=== PATIENT | female | born 1940 | race Caucasian/White ===

== ENCOUNTER 2018-05-02 13:14 | Emergency (ER) | payer MEDICARE, OTHER ==
[~2018-05-02] VITALS: Ht 162.6 cm; Wt 60.9 kg
[2018-05-02 13:16] VITALS: BP 176/87
[2018-05-02] MEDS ORDERED: LORazepam 1MG TABLET ONE (14:22)
[2018-05-02] MEDS ORDERED: LORazepam 1MG TABLET PO ONE (15:00)
== END 2018-05-02 16:04 | disposition home or self-care (01) ==
LOC: ED 14:02
DX: S00.33XA Contusion of nose, initial encounter (principal); W22.8XXA Striking against or struck by other objects, initial encounter; Y93.89 Activity, other specified; Y92.009 Unspecified place in unspecified non-institutional (private) residence as the place of occurrence of the external cause; Y99.8 Other external cause status
CPT/HCPCS: 70450; 70486; 99284

== ENCOUNTER 2018-06-17 05:47 | Inpatient (IN) | payer MEDICARE, OTHER ==
[~2018-06-17] VITALS: Ht 162.6 cm; Wt 62.8 kg
[2018-06-17] MEDS ORDERED: ASPIRIN 81 MG TABLET CHEW PO ONE (06:30)
[2018-06-17] MEDS ORDERED: SODIUM CHLORIDE FLUSH 10ML SYR IVF ONE (06:30)
[2018-06-17 06:37] LABS: BASOPHILS # (AUTO) 0.02 x10^3/uL (0-0.1); BASOPHILS % (AUTO) 1 % (0-1); EOSINOPHILS # (AUTO) 0.11 x10^3/uL (0-0.4); EOSINOPHILS % (AUTO) 2 % (1-7); LYMPHOCYTES # (AUTO) 0.86 x10^3/uL (1-3.4); LYMPHOCYTES % (AUTO) 17 % (22-44); MD NO; MEAN CORPUSCULAR HEMOGLOBIN 32.3 pg (27.0-34.8); MEAN CORPUSCULAR HGB CONC 35.4 g/dL (32.4-35.8); MEAN CORPUSCULAR VOLUME 91.2 fL (80-100); MONOCYTES % (AUTO) 10 % (2-9); NEUTROPHILS # (AUTO) 3.52 x10^3/uL (1.8-6.8); NEUTROPHILS % (AUTO) 70 % (42-75); PLATELET COUNT 253 x10^3/uL (130-400); RED BLOOD COUNT 4.34 x10^6/uL (3.82-5.3); RED CELL DISTRIBUTION WIDTH 12.9 % (9.6-15.2)
[2018-06-17] MEDS ORDERED: ASPIRIN 81 MG TABLET CHEW ONE (06:44)
[2018-06-17 06:50] LABS: ALBUMIN 3.6 g/dL (3.4-5.0); ANION GAP 9 mmol/L (5-15); CALCIUM 9.7 mg/dL (8.5-10.1); CHLORIDE 109 mmol/L (98-107)
[2018-06-17 06:55] LABS: ALKALINE PHOSPHATASE 81 U/L (45-117); BILIRUBIN,TOTAL 0.8 mg/dL (0.2-1.0); CREATININE 0.76 mg/dL (0.55-1.02); TOTAL PROTEIN 6.6 g/dL (6.4-8.2); TROPONIN I < 0.015 ng/mL (0.000-0.045)
[2018-06-17 07:03] LABS: ALANINE AMINOTRANSFERASE 13 U/L (12-78); THYROID STIMULATING HORMONE 0.502 mIU/L (0.358-3.740)
[2018-06-17] MEDS ORDERED: POTASSIUM CHLORIDE 20 MEQ TAB.ER.PRT PO ONE ×2 (07:30→09:30)
[2018-06-17] MEDS ORDERED: MAALOX/HYOSCYAMINE/LIDOCAINE 45 ML BTL PO ONE (07:30)
[2018-06-17] MEDS ORDERED: MAALOX/HYOSCYAMINE/LIDOCAINE 45 ML BTL ONE (07:41)
[2018-06-17] MEDS ORDERED: POTASSIUM CHLORIDE 20 MEQ TAB.ER.PRT ONE (07:41)
[2018-06-17] MEDS ORDERED: SODIUM CHLORIDE FLUSH 10ML SYR IVF PRN (08:00)
[2018-06-17] MEDS ORDERED: METO50TA82 PO (08:21)
[2018-06-17] MEDS ORDERED: LORA-445 PO (08:21)
[2018-06-17] MEDS ORDERED: ASPI325T17 PO (08:21)
[2018-06-17] MEDS ORDERED: CLON0.1T PO (08:21)
[2018-06-17] MEDS ORDERED: GABA-826 PO (08:21)
[2018-06-17 08:48] VITALS: BP 151/71
[2018-06-17] MEDS ORDERED: LABETALOL 5MG/ML, 20ML IVPush PRN (09:30)
[2018-06-17] MEDS ORDERED: ENALAPRILAT 1.25 MG/ML, 2ML IVPush PRN (09:30)
[2018-06-17 09:38] VITALS: BP 151/71
[2018-06-17] MEDS ORDERED: ATOR20TA PO (09:53)
[2018-06-17] MEDS ORDERED: GABAPENTIN 100 MG CAPSULE PO SCH (10:00)
[2018-06-17] MEDS ORDERED: ASPIRIN 325 MG TABLET PO SCH (10:00)
[2018-06-17 11:52] LABS: MICROSCOPIC AUTO
[2018-06-17 11:54] LABS: CULTURE INDICATED? NO
[2018-06-17 12:02] LABS: AMPHETAMINE SCREEN, URINE Negative (Negative); BARBITURATE SCREEN, URINE Negative (Negative); BENZODIAZEPINE SCREEN, URINE Negative (Negative); CANNABINOID SCREEN, URINE Negative (Negative); COCAINE SCREEN, URINE Negative (Negative); METHADONE SCREEN, URINE Negative (Negative); OPIATE SCREEN, URINE Negative (Negative)
[2018-06-17 12:05] LABS: TROPONIN I < 0.015 ng/mL (0.000-0.045)
[2018-06-17 12:38] VITALS: BP 125/75
[2018-06-17] MEDS: METOPROLOL TARTRATE 50 MG TABLET PO SCH ×2 (13:01→20:29)
[2018-06-17] MEDS: LORazepam 0.5MG TABLET PO SCH ×2 (13:21→20:28)
[2018-06-17 19:12] VITALS: BP 111/68
[2018-06-17] MEDS: GABAPENTIN 100 MG CAPSULE PO SCH (20:28)
[2018-06-17] MEDS: ATORVASTATIN 20 MG TABLET PO SCH (20:29)
[2018-06-18 01:32] VITALS: BP 106/63
[2018-06-18 07:46] VITALS: BP 115/69
[2018-06-18] MEDS: ACETAMINOPHEN 325 MG TABLET PO PRN (08:20)
[2018-06-18] MEDS: LORazepam 0.5MG TABLET PO SCH ×2 (08:21→19:43)
[2018-06-18] MEDS: GABAPENTIN 100 MG CAPSULE PO SCH ×3 (08:21→19:43)
[2018-06-18] MEDS: METOPROLOL TARTRATE 50 MG TABLET PO SCH ×2 (08:22→19:44)
[2018-06-18] MEDS: ASPIRIN 325 MG TABLET PO SCH (10:08)
[2018-06-18 12:04] VITALS: BP 88/54
[2018-06-18 12:16] VITALS: BP 104/62
[2018-06-18 14:21] VITALS: BP 121/67
[2018-06-18 19:11] VITALS: BP 125/57
[2018-06-18] MEDS: ATORVASTATIN 20 MG TABLET PO SCH (19:43)
[2018-06-19 01:07] VITALS: BP 107/61
[2018-06-19 07:08] VITALS: BP 136/73
[2018-06-19] MEDS: ASPIRIN 325 MG TABLET PO SCH (08:16)
[2018-06-19] MEDS: METOPROLOL TARTRATE 50 MG TABLET PO SCH ×2 (08:16→21:16)
[2018-06-19] MEDS: LORazepam 0.5MG TABLET PO SCH (08:16)
[2018-06-19] MEDS: GABAPENTIN 100 MG CAPSULE PO SCH ×3 (08:16→21:16)
[2018-06-19 08:53] LABS: ANION GAP 6 mmol/L (5-15); CALCIUM 8.9 mg/dL (8.5-10.1); CHLORIDE 109 mmol/L (98-107)
[2018-06-19 08:56] LABS: CREATININE 0.84 mg/dL (0.55-1.02)
[2018-06-19 13:02] VITALS: BP 112/73
[2018-06-19 18:44] VITALS: BP 113/73
[2018-06-19 21:00] VITALS: BP 118/73
[2018-06-19] MEDS: ATORVASTATIN 20 MG TABLET PO SCH (21:16)
[2018-06-20 01:21] VITALS: BP 112/62
[2018-06-20 07:23] VITALS: BP 152/84
[2018-06-20] MEDS: GABAPENTIN 100 MG CAPSULE PO SCH ×3 (08:43→19:43)
[2018-06-20] MEDS: METOPROLOL TARTRATE 50 MG TABLET PO SCH ×2 (08:43→19:43)
[2018-06-20] MEDS: ASPIRIN 325 MG TABLET PO SCH (08:43)
[2018-06-20 13:03] VITALS: BP 155/82
[2018-06-20] MEDS ORDERED: HYDR25TA11 PO (15:48)
[2018-06-20 19:33] VITALS: BP 124/71
[2018-06-20] MEDS: ATORVASTATIN 20 MG TABLET PO SCH (19:43)
[2018-06-21 01:11] VITALS: BP 113/69
[2018-06-21 06:54] VITALS: BP 133/71
[2018-06-21] MEDS ORDERED: LORazepam 0.5MG TABLET PO PRN (08:00)
[2018-06-21] MEDS: ASPIRIN 325 MG TABLET PO SCH (08:47)
[2018-06-21] MEDS: METOPROLOL TARTRATE 50 MG TABLET PO SCH (08:47)
[2018-06-21] MEDS: GABAPENTIN 100 MG CAPSULE PO SCH ×2 (08:48→16:08)
[2018-06-21 12:32] VITALS: BP 102/64
[2018-06-21] MEDS: ACETAMINOPHEN 325 MG TABLET PO PRN (14:11)
== END 2018-06-21 18:13 | DRG 880 ==
LOC: ED 06:31 → 5SO 07:37 → 4NOR 06-18 14:20
PROVIDERS: ADMIT Internal Medicine; ATTEND Internal Medicine
DX: F41.0 Panic disorder [episodic paroxysmal anxiety] (principal); R19.7 Diarrhea, unspecified; R07.89 Other chest pain; E87.6 Hypokalemia; I10 Essential (primary) hypertension; K29.00 Acute gastritis without bleeding; F22 Delusional disorders; Z85.3 Personal history of malignant neoplasm of breast; Z90.11 Acquired absence of right breast and nipple; Z90.710 Acquired absence of both cervix and uterus; G43.909 Migraine, unspecified, not intractable, without status migrainosus; F29 Unspecified psychosis not due to a substance or known physiological condition; R73.9 Hyperglycemia, unspecified; R10.9 Unspecified abdominal pain; F31.9 Bipolar disorder, unspecified; Z79.82 Long term (current) use of aspirin; Z79.899 Other long term (current) drug therapy; Z23 Encounter for immunization
CPT/HCPCS: 36415; 71045; 80048; 80053; 80307; 81001; 83735; 83880; 84443; 84484; 85025; 90656; 93005; 99285; G0378; Q0177

== ENCOUNTER 2018-06-21 18:00 | Inpatient (IN) | payer MEDICARE, OTHER ==
[~2018-06-21] VITALS: Ht 162.6 cm; Wt 57.5 kg
[~2018-06-21 18:00] MED LIST: ASPI325T17 PO; ATOR20TA PO; CLON0.1T PO; GABA-826 PO; HYDR25TA11 PO; LORA-445 PO; METO50TA82 PO
[2018-06-21] MEDS ORDERED: ACETAMINOPHEN 325 MG TABLET PO PRN (19:00)
[2018-06-21] MEDS ORDERED: BISACODYL 10 MG SUPP PR PRN (19:00)
[2018-06-21] MEDS ORDERED: ONDANSETRON ODT 4 MG PO PRN (19:00)
[2018-06-21] MEDS ORDERED: POLYETHYLENE GLYCOL 17 GM PACKET PO PRN (19:00)
[2018-06-21 19:34] VITALS: BP_SYST 127; BP_SYST 131; BP_SYST 138; BP_DIAS 71; BP_DIAS 80; BP_DIAS 82
[2018-06-21] MEDS: GABAPENTIN 100 MG CAPSULE PO SCH (21:57)
[2018-06-21] MEDS: METOPROLOL TARTRATE 25 MG TABLET PO SCH (22:00)
[2018-06-22 05:24] LABS: BASOPHILS # (AUTO) 0.03 x10^3/uL (0-0.1); BASOPHILS % (AUTO) 1 % (0-1); EOSINOPHILS # (AUTO) 0.19 x10^3/uL (0-0.4); EOSINOPHILS % (AUTO) 4 % (1-7); LYMPHOCYTES # (AUTO) 1.51 x10^3/uL (1-3.4); LYMPHOCYTES % (AUTO) 34 % (22-44); MD NO; MEAN CORPUSCULAR HEMOGLOBIN 32.1 pg (27.0-34.8); MEAN CORPUSCULAR HGB CONC 34.9 g/dL (32.4-35.8); MEAN PLATELET VOLUME 7.1 fL (7.4-10.4); MONOCYTES % (AUTO) 11 % (2-9); NEUTROPHILS # (AUTO) 2.17 x10^3/uL (1.8-6.8); NEUTROPHILS % (AUTO) 49 % (42-75); PLATELET COUNT 220 x10^3/uL (130-400); RED BLOOD COUNT 4.15 x10^6/uL (3.82-5.3); RED CELL DISTRIBUTION WIDTH 13.2 % (9.6-15.2)
[2018-06-22 05:41] LABS: ALBUMIN 3.2 g/dL (3.4-5.0); ANION GAP 4 mmol/L (5-15); CALCIUM 8.6 mg/dL (8.5-10.1); CHLORIDE 109 mmol/L (98-107)
[2018-06-22 06:06] LABS: ALANINE AMINOTRANSFERASE 11 U/L (12-78); ALKALINE PHOSPHATASE 71 U/L (45-117); BILIRUBIN,TOTAL 0.7 mg/dL (0.2-1.0); CHOL/HDL RATIO 3.2; CHOLESTEROL, TOTAL 165 mg/dL (140-239); CREATININE 0.69 mg/dL (0.55-1.02); FOLATE LEVEL 13.1 ng/mL (3.1-17.5); FREE T4 (FREE THYROXINE) 1.15 ng/dL (0.76-1.46); HDL CHOL % 31 % (28-40); HDL CHOLESTEROL (DIRECT) 51 mg/dL (40-60); LDL CHOLESTEROL,CALCULATED 84 mg/dL (54-169); LDL/HDL RATIO 1.6 (0.5-3.0); THYROID STIMULATING HORMONE 0.423 mIU/L (0.358-3.740); TOTAL PROTEIN 5.9 g/dL (6.4-8.2); TRIGLYCERIDES 149 mg/dL (50-200); VLDL CHOLESTEROL 30 mg/dL (0-25)
[2018-06-22 06:12] LABS: CULTURE INDICATED? YES; MICROSCOPIC AUTO
[2018-06-22 07:54] VITALS: BP 147/83
[2018-06-22] MEDS: METOPROLOL TARTRATE 25 MG TABLET PO SCH ×2 (09:02→20:07)
[2018-06-22] MEDS: GABAPENTIN 100 MG CAPSULE PO SCH ×3 (09:02→20:07)
[2018-06-22] MEDS: ASPIRIN 325 MG TABLET PO SCH (09:02)
[2018-06-22] MEDS: SENNA/DOCUSATE TABLET PO SCH (09:13)
[2018-06-22 19:27] VITALS: BP 123/73
[2018-06-22] MEDS: LORazepam 1MG TABLET PO PRN (20:07)
[2018-06-22] MEDS ORDERED: QUETIAPINE 25MG TABLET PO SCH (21:00)
[2018-06-23 07:20] VITALS: BP 161/74
[2018-06-23] MEDS: ASPIRIN 325 MG TABLET PO SCH (08:34)
[2018-06-23] MEDS: GABAPENTIN 100 MG CAPSULE PO SCH ×3 (08:34→20:35)
[2018-06-23] MEDS: METOPROLOL TARTRATE 25 MG TABLET PO SCH ×2 (08:34→20:35)
[2018-06-23] MEDS: SENNA/DOCUSATE TABLET PO SCH (08:39)
[2018-06-23] MEDS: MIRTAZAPINE 15 MG TABLET PO SCH (20:35)
[2018-06-23 21:20] VITALS: BP 131/77
[2018-06-24 07:51] VITALS: BP 179/81
[2018-06-24] MEDS: ASPIRIN 325 MG TABLET PO SCH (08:30)
[2018-06-24] MEDS: GABAPENTIN 100 MG CAPSULE PO SCH ×3 (08:30→21:13)
[2018-06-24] MEDS: METOPROLOL TARTRATE 25 MG TABLET PO SCH ×2 (08:30→21:13)
[2018-06-24] MEDS: SENNA/DOCUSATE TABLET PO SCH ×2 (08:30→08:35)
[2018-06-24 10:13] VITALS: BP 181/80
[2018-06-24] MEDS: LISINOPRIL 5 MG TABLET PO SCH (10:46)
[2018-06-24 11:31] VITALS: BP 131/72
[2018-06-24] MEDS: LORazepam 1MG TABLET PO PRN ×2 (14:13→21:13)
[2018-06-24 19:54] VITALS: BP 103/66
[2018-06-24] MEDS: MIRTAZAPINE 15 MG TABLET PO SCH (21:13)
[2018-06-25 08:00] VITALS: BP 143/81
[2018-06-25] MEDS: SENNA/DOCUSATE TABLET PO SCH (09:10)
[2018-06-25] MEDS: ASPIRIN 325 MG TABLET PO SCH (09:10)
[2018-06-25] MEDS: GABAPENTIN 100 MG CAPSULE PO SCH ×3 (09:10→20:58)
[2018-06-25] MEDS: METOPROLOL TARTRATE 25 MG TABLET PO SCH ×2 (09:11→20:58)
[2018-06-25] MEDS: LISINOPRIL 5 MG TABLET PO SCH (09:11)
[2018-06-25 19:44] VITALS: BP 155/70
[2018-06-25] MEDS: MIRTAZAPINE 15 MG TABLET PO SCH (20:58)
[2018-06-26 07:53] VITALS: BP 140/64
[2018-06-26] MEDS: ASPIRIN 325 MG TABLET PO SCH (09:44)
[2018-06-26] MEDS: LISINOPRIL 5 MG TABLET PO SCH (09:45)
[2018-06-26] MEDS: GABAPENTIN 100 MG CAPSULE PO SCH ×3 (09:46→20:48)
[2018-06-26] MEDS: METOPROLOL TARTRATE 25 MG TABLET PO SCH ×2 (09:46→20:47)
[2018-06-26] MEDS: SENNA/DOCUSATE TABLET PO SCH (09:50)
[2018-06-26 19:37] VITALS: BP 128/73
[2018-06-26] MEDS: MIRTAZAPINE 15 MG TABLET PO SCH (20:48)
[2018-06-27] MEDS: LORazepam 1MG TABLET PO PRN (07:12)
[2018-06-27 07:33] VITALS: BP 131/82
[2018-06-27] MEDS: LISINOPRIL 5 MG TABLET PO SCH (09:05)
[2018-06-27] MEDS: ASPIRIN 325 MG TABLET PO SCH (09:05)
[2018-06-27] MEDS: METOPROLOL TARTRATE 25 MG TABLET PO SCH ×2 (09:05→20:16)
[2018-06-27] MEDS: GABAPENTIN 100 MG CAPSULE PO SCH ×3 (09:06→20:17)
[2018-06-27] MEDS: SENNA/DOCUSATE TABLET PO SCH (09:06)
[2018-06-27 19:45] VITALS: BP 130/72
[2018-06-27] MEDS ORDERED: MIRTAZAPINE 15 MG TABLET PO SCH (21:00)
[2018-06-28 07:44] VITALS: BP 151/81
[2018-06-28] MEDS: GABAPENTIN 100 MG CAPSULE PO SCH (08:36)
[2018-06-28] MEDS: LISINOPRIL 5 MG TABLET PO SCH (08:36)
[2018-06-28] MEDS: ASPIRIN 325 MG TABLET PO SCH (08:36)
[2018-06-28] MEDS: METOPROLOL TARTRATE 25 MG TABLET PO SCH (08:37)
[2018-06-28] MEDS: SENNA/DOCUSATE TABLET PO SCH (08:41)
[2018-06-28] MEDS ORDERED: MIRT15TA4 PO (13:09)
== END 2018-06-28 15:10 | disposition home or self-care (01) | DRG 885 ==
LOC: EDBD → 3E 18:00 → MERGE 18:00
PROVIDERS: ADMIT Counselor Mental Health; ATTEND Counselor Mental Health
DX: F39 Unspecified mood [affective] disorder (principal); F22 Delusional disorders; I10 Essential (primary) hypertension; F41.1 Generalized anxiety disorder; K59.00 Constipation, unspecified; Z79.82 Long term (current) use of aspirin; Z90.11 Acquired absence of right breast and nipple; Z85.3 Personal history of malignant neoplasm of breast; Z90.710 Acquired absence of both cervix and uterus; Z79.899 Other long term (current) drug therapy; Z82.49 Family history of ischemic heart disease and other diseases of the circulatory system; Z82.5 Family history of asthma and other chronic lower respiratory diseases; Z88.8 Allergy status to other drugs, medicaments and biological substances
CPT/HCPCS: 36415; 80053; 80061; 81001; 82607; 82746; 84439; 84443; 85025; 86592; 87086; 93005; 92523-GN

== ENCOUNTER 2020-01-26 08:50 | Emergency (ER) | payer MEDICARE, OTHER ==
[~2020-01-26] VITALS: Ht 162.6 cm; Wt 56.4 kg
[~2020-01-26 08:50] MED LIST changes: -CLON0.1T PO; +CLON0.1T22 PO; +HYDR-826 PO; -HYDR25TA11 PO; +MIRT-34 PO
--- NOTE | 2020-01-26 09:14 | NUR ---
bedside comode in room. pt aware of urine/stool sample. pt stated"i can't go now." pa notified. pt refused straight cath.
--- NOTE | 2020-01-26 09:15 | NUR ---
ns infusing at this time. pt tolerated well.
[2020-01-26 09:19] LABS: BASOPHILS # (AUTO) 0.02 x10^3/uL (0-0.1); BASOPHILS % (AUTO) 1 % (0-1); EOSINOPHILS # (AUTO) 0.02 x10^3/uL (0-0.4); EOSINOPHILS % (AUTO) 1 % (1-7); LYMPHOCYTES # (AUTO) 1.38 x10^3/uL (1-3.4); LYMPHOCYTES % (AUTO) 33 % (22-44); MD NO; MEAN CORPUSCULAR HEMOGLOBIN 32.3 pg (27.0-34.8); MEAN CORPUSCULAR HGB CONC 34.2 g/dL (32.4-35.8); MEAN CORPUSCULAR VOLUME 94.7 fL (80-100); MEAN PLATELET VOLUME 6.1 fL (7.4-10.4); MONOCYTES # (AUTO) 0.46 x10^3/uL (0.2-0.8); MONOCYTES % (AUTO) 11 % (2-9); NEUTROPHILS # (AUTO) 2.25 x10^3/uL (1.8-6.8); NEUTROPHILS % (AUTO) 55 % (42-75); PLATELET COUNT 329 x10^3/uL (130-400); RED BLOOD COUNT 4.17 x10^6/uL (3.82-5.3); RED CELL DISTRIBUTION WIDTH 12.9 % (9.6-15.2)
[2020-01-26 09:31] LABS: ALANINE AMINOTRANSFERASE 13 U/L (12-78); ALBUMIN 3.6 g/dL (3.4-5.0); ANION GAP 9 mmol/L (5-15); CALCIUM 9.2 mg/dL (8.5-10.1); CHLORIDE 107 mmol/L (98-107); CREATININE 0.67 mg/dL (0.55-1.02)
[2020-01-26 09:33] LABS: ALKALINE PHOSPHATASE 69 U/L (45-117); BILIRUBIN,TOTAL 0.8 mg/dL (0.2-1.0); TOTAL PROTEIN 7.2 g/dL (6.4-8.2)
--- NOTE | 2020-01-26 09:37 | NUR ---
pt's daughter Sarai [phone]
[2020-01-26] MEDS ORDERED: SODIUM CHLORIDE FLUSH 10ML SYR IVF ONE (10:00)
[2020-01-26] MEDS ORDERED: SODIUM CHLORIDE 0.9% 1,000ML IVBOLUS ONE (10:00)
--- NOTE | 2020-01-26 10:06 | NUR ---
pt to ct at this time.
[2020-01-26] MEDS ORDERED: OMNIPAQUE 350 MG/ML, 100ML BOTTLE ONE (10:37)
--- NOTE | 2020-01-26 10:39 | NUR ---
pt back to room from ct at this time.
--- NOTE | 2020-01-26 10:57 | NUR ---
pt used bedside comode. pt provided urine sample at this time. urine collected and ua sent.
[2020-01-26 11:09] LABS: MICROSCOPIC AUTO
--- NOTE | 2020-01-26 11:47 | NUR ---
PT USED BEDSIDE COMODE AGAIN. PT URINATED. PT'S AOX4. RESPS EVEN AND UNLABORED.
[2020-01-26 11:48] VITALS: BP 181/90
--- NOTE | 2020-01-26 12:33 | NUR ---
Called daughter to tow picker pt, all questions answered.
--- NOTE | 2020-01-26 12:54 | NUR ---
Patient given discharge instructions and they have confirmed that they understand the instructions.
== END 2020-01-26 12:55 | disposition home or self-care (01) ==
LOC: ED 09:18
DX: K52.9 Noninfective gastroenteritis and colitis, unspecified (principal); I10 Essential (primary) hypertension; Z90.710 Acquired absence of both cervix and uterus; Z85.3 Personal history of malignant neoplasm of breast
CPT/HCPCS: 36415; 74177; 80053; 81001; 83690; 85025; 96360; 96361; 99285; J7030; Q9967

== ENCOUNTER 2020-05-01 08:41 | Emergency (ER) | payer MEDICARE, OTHER ==
[~2020-05-01] VITALS: Ht 162.6 cm; Wt 54.7 kg
--- NOTE | 2020-05-01 08:51 | NUR ---
PT WHEELED TO ROOM AT THIS TIME.
--- NOTE | 2020-05-01 09:00 | NUR ---
TASK RN, COVERING PRIMARY BREAK. PT PLACED ON ALL ROOM MONITORING, SINUS TACH ON MONITOR. WARM BLANKET PROVIDED, CALL LIGHT WITHIN REACH. FAMILY AT BS ASSISTING WITH HX.
--- NOTE | 2020-05-01 09:02 | NUR ---
DAUGHTER DIANA HUYNH [phone]
--- NOTE | 2020-05-01 09:05 | NUR ---
AFTER INTERVIEW W/ PT AND FAMILY AT BEDSIDE, FAMILY FOLLOWED RN OUT OF ROOM. DAUGHTER REPORTS PT HAS HX OF DEMENTIA AND DRUG INDUCED PSYCHOSIS. DAUGHTER STATES THAT SHE DID NOT WANT TO MENTION IT INFRONT OF PT BECAUSE IT UPSETS HER.
--- NOTE | 2020-05-01 09:15 | NUR ---
THIS IS A 80 YO F W/ C/O N/D SINCE LAST NIGHT. PT REPORTS STOPPED AMOXICILLIN RX THIS WEEK. WAS TAKING ABX FOR DENTAL INFECTION. PT REPORTS MILD EPIGASTRIC PAIN W/ DRY HEAVNIG. PT RESTING ON GURNEY W/ CALL LIGHT IN REACH. RESP EVEN AND UNLABORED, NADN.
--- NOTE | 2020-05-01 09:30 | NUR ---
PIV STARTED AND LABS DRAWN BY [employer] STUDENT MAYDA UNDER SUPERVISION OF THIS RN.
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
[2020-05-01] MEDS ORDERED: ONDANSETRON 2MG/ML, 2ML ONE (09:56)
[2020-05-01 10:00] LABS: BASOPHILS # (AUTO) 0.03 x10^3/uL (0-0.1); BASOPHILS % (AUTO) 0 % (0-1); EOSINOPHILS # (AUTO) 0.06 x10^3/uL (0-0.4); EOSINOPHILS % (AUTO) 1 % (1-7); LYMPHOCYTES # (AUTO) 1.33 x10^3/uL (1-3.4); LYMPHOCYTES % (AUTO) 17 % (22-44); MD NO; MEAN CORPUSCULAR HEMOGLOBIN 30.8 pg (27.0-34.8); MEAN CORPUSCULAR HGB CONC 33.1 g/dL (32.4-35.8); MEAN PLATELET VOLUME 6.1 fL (7.4-10.4); MONOCYTES # (AUTO) 0.65 x10^3/uL (0.2-0.8); MONOCYTES % (AUTO) 8 % (2-9); NEUTROPHILS # (AUTO) 5.96 x10^3/uL (1.8-6.8); NEUTROPHILS % (AUTO) 74 % (42-75); PLATELET COUNT 338 x10^3/uL (130-400); RED BLOOD COUNT 4.34 x10^6/uL (3.82-5.3); RED CELL DISTRIBUTION WIDTH 12.4 % (9.6-15.2)
[2020-05-01] MEDS ORDERED: SODIUM CHLORIDE FLUSH 10ML SYR IVF ONE (10:00)
[2020-05-01] MEDS ORDERED: SODIUM CHLORIDE 0.9% 1,000ML IVBOLUS ONE (10:00)
[2020-05-01] MEDS ORDERED: ONDANSETRON 2MG/ML, 2ML IVPush ONE (10:00)
[2020-05-01 10:12] LABS: ALANINE AMINOTRANSFERASE 9 U/L (12-78); ALBUMIN 3.9 g/dL (3.4-5.0); ANION GAP 9 mmol/L (5-15); CALCIUM 9.5 mg/dL (8.5-10.1); CHLORIDE 110 mmol/L (98-107); CREATININE 0.65 mg/dL (0.55-1.02)
[2020-05-01 10:14] LABS: ALKALINE PHOSPHATASE 85 U/L (45-117); BILIRUBIN,TOTAL 0.8 mg/dL (0.2-1.0); TOTAL PROTEIN 7.4 g/dL (6.4-8.2)
--- NOTE | 2020-05-01 10:20 | NUR ---
PT AMBULATED TO THE BEDSIDE COMMODE W/ A STEADY GAIT. ABLE TO PROVIDE CLEAN CATCH SPECIMEN UNDER SUPERVISION OF THIS RN. PT RETURNED TO [facility] W/O INCIDENT.
--- NOTE | 2020-05-01 10:36 | NUR ---
SPOKE W/ AGREES PT MAY BENEFIT FROM PSYCH CONSULT. STACI RN UPDATED.
--- NOTE | 2020-05-01 10:37 | NUR ---
PSYCH PRINT SUPPORT SPECIALIST AWARE OF CONSULT. WILL SEE PT WHEN ARRIVES TO ED.
[2020-05-01 10:42] LABS: MICROSCOPIC AUTO
--- NOTE | 2020-05-01 10:43 | NUR ---
PT RETURNED FROM CT. ASSISTED TO BEDSIDE COMMODE. RETURNED TO [facility] W/O INCIDENT. RESTING ON [facility], CONNECTED TO ALL MONITORING. RESP EVEN AND UNLABORED, DAYO.
[2020-05-01] MEDS ORDERED: OMNIPAQUE 350 MG/ML, 100ML BOTTLE ONE (10:46)
[2020-05-01] MEDS ORDERED: HYDROmorphone 1 MG/ML, 1ML INJ ONE (10:46)
[2020-05-01] MEDS: HYDROmorphone 2 MG/ML, 1ML IVPush PRN (10:49)
--- NOTE | 2020-05-01 10:59 | NUR ---
REPORT GIVEN TO MAGALI MESSINA. PT RESTING ON [place] W/ CALL LIGHT IN REACH AND SIDE RAILS UPX2. RESP EVEN AND UNLABORED, NADN. AWAITING PSYCH BONUS CLERK, SW AND LAB RESULTS.
--- NOTE | 2020-05-01 11:15 | NUR ---
CALLED CORRUGATOR OPERATOR HELPER, SULLY, STATED SHE IS ALREADY AWARE OF PT. AFTER REVIEW OF CHART SHE WILL COME DOWN AND SEE PT.
--- NOTE | 2020-05-01 11:43 | NUR ---
TASK RN: JAMIA AT BEDSIDE.
--- NOTE | 2020-05-01 11:50 | NUR ---
SW AT BEDSIDE
--- NOTE | 2020-05-01 13:14 | NUR ---
PSYCH FINANCIAL PLANNING ANALYST AT BEDSIDE.
--- NOTE | 2020-05-01 13:48 | NUR ---
PSYCH INSULATION BLANKET MAKER TO PUT PT ON LEGAL HOLD FOR SI. AUGUSTUS MEDICALLY CLEARED PT.
--- NOTE | 2020-05-01 14:43 | NUR ---
PT IN ROOM IN DIRECT SIGHT OF NURSES STATION.
--- NOTE | 2020-05-01 15:09 | NUR ---
DIET BHARATHIY DELIVERED. PT APPRECIATIVE.
--- NOTE | 2020-05-01 15:40 | NUR ---
THROUGHPUT RN::PT PACKET FAXED TO [facility] FOR ADMIT CONSIDERATION
--- NOTE | 2020-05-01 15:52 | NUR ---
RECEIVED CALL FROM [facility] REQUESTING REGULAR COVID SWAB FOR ADMIT, NOT RAPID COVID SWAB. D/T PT C/O SORE THROAT. VERBAL ORDER FROM MD FOR REGULAR COVID SWAB. PT SWABBED AND SPECIMEN TAKEN TO LAB.
--- NOTE | 2020-05-01 16:00 | NUR ---
THROUGHPUT RN::PT PACKET FAXED TO [facility], [facility], [facility], [facility], AND [facility]
[2020-05-01] MEDS: RISPERIDONE 0.5 MG TABLET PO SCH (18:24)
--- NOTE | 2020-05-01 18:27 | NUR ---
REPORT FROM AIDEN ALLRED TO RM 2
--- NOTE | 2020-05-01 19:00 | NUR ---
REPORT FROM ONEIL MESSINA. PT RESTING IN [facility], COMPLAINS OF FEELING ANXIOUS "ABOUT MY DAUGHTER AND WHAT SHES UP TO RIGHT NOW". ASKING FOR ANXIETY AND SLEEPING MEDICATIONS.
[2020-05-01] MEDS ORDERED: TRAZ50TA66 PO (20:54)
[2020-05-01] MEDS ORDERED: TRAZODONE 50MG TABLET PO SCH (21:00)
--- NOTE | 2020-05-01 21:03 | NUR ---
pt resting in [facility], anxious about her daughter and what her daughter is doing. states she takes multiple sleeping medications but unable to name them. Denies having high blood pressure but per med rec BP meds have been saved. pt denying wanting to harm herself or others at this time. pt requesting anxiety meds and trazodone.
[2020-05-01] MEDS ORDERED: LORazepam 0.5MG TABLET ONE (22:29)
[2020-05-01] MEDS ORDERED: TRAZODONE 100MG TABLET ONE (22:29)
[2020-05-01] MEDS ORDERED: LORazepam 1MG TABLET PO ONE (22:30)
[2020-05-01] MEDS: TRAZODONE 100MG TABLET PO SCH (22:31)
--- NOTE | 2020-05-01 22:33 | NUR ---
pt sitting in bed upset and crying. medicated per emar. sitter at doorway
--- NOTE | 2020-05-01 23:47 | NUR ---
PT SLEEPING, SITTER AT DOORWAY
--- NOTE | 2020-05-02 01:22 | NUR ---
PT SLEEPING. SITTER AT DOORWAY. SUICIDE PRECAUTIONS IN PLACE
--- NOTE | 2020-05-02 03:30 | NUR ---
TASK RN: PT RESTING ON OPAL OSHEA
--- NOTE | 2020-05-02 04:20 | NUR ---
PT REQUESTING GALLOIEN, STATING SHE HASN'T SLEPT IN TWO NIGHTS FROM INSOMNIA. SITTER AT DOORWAY.
--- NOTE | 2020-05-02 07:05 | NUR ---
Handoff report received from RICARDO MESSINA
--- NOTE | 2020-05-02 08:02 | NUR ---
Pt lying n bed, awake, complaining of AGUILAR. Will request pain medication from ERP. Pt is anxious and worried about plan of care. Spoke with Pt's daughter on phone who requested an update, Pt gives verbal consent to communicate patients condition to daughter. Will call daughter back. Diet tray ordered, pt provided with a snack. VS upadated. Sitter at bedside.
[2020-05-02] MEDS ORDERED: PROMETHAZINE 25 MG/ML, 1ML IM ONE (08:30)
[2020-05-02] MEDS ORDERED: IBUPROFEN 200 MG TABLET PO ONE (08:30)
[2020-05-02] MEDS ORDERED: PROMETHAZINE 25 MG/ML, 1ML ONE (08:36)
[2020-05-02] MEDS ORDERED: IBUPROFEN 200 MG TABLET ONE (08:37)
--- NOTE | 2020-05-02 08:54 | NUR ---
Pt medicated with Motrin and IM Phenergan for what pt describes as a migraine. Provided with water.
--- NOTE | 2020-05-02 09:07 | NUR ---
Report provided to SIDDHARTH Kulkarni at [facility]. Cayla to discuss with doctor if they will accept pt. Waiting for call back.
--- NOTE | 2020-05-02 09:44 | NUR ---
Daughter Neeru provided with update
[2020-05-02] MEDS ORDERED: RISPERIDONE 2 MG TABLET ONE (09:47)
[2020-05-02] MEDS: RISPERIDONE 0.5 MG TABLET PO SCH ×2 (09:52→21:00)
--- NOTE | 2020-05-02 09:55 | NUR ---
Pt states AGUILAR mostly resolved.
--- NOTE | 2020-05-02 10:30 | NUR ---
Pt provided with breakfast. VS updated. BP and HR improved
--- NOTE | 2020-05-02 12:16 | NUR ---
Pt sleeping, appears comfortable.
--- NOTE | 2020-05-02 15:09 | NUR ---
BREAK RN NOTE: PT SLEEPING ON GURNEY, RESPS EVEN AND UNLABORED. SITTER MONTIORING FROM [facility] FOR SAFETY. ROOM SECURE. AWAITING ACCEPTANCE AT [facility] AT THIS TIME.
--- NOTE | 2020-05-02 15:12 | NUR ---
HOSPITAL BED REQUESTED FROM [employer] MANAGER.
--- NOTE | 2020-05-02 15:48 | NUR ---
Pt placed on hospital bed for comfort
[2020-05-02] MEDS ORDERED: HYDROmorphone 1 MG/ML, 1ML INJ ONE (16:36)
[2020-05-02] MEDS: HYDROmorphone 2 MG/ML, 1ML IVPush PRN (16:47)
--- NOTE | 2020-05-02 16:49 | NUR ---
Pt complaining of AGUILAR. Medicated with dilaudid, placed on SpO2 montoring. Sitter at bedside.
--- NOTE | 2020-05-02 18:00 | NUR ---
Pt request for no visits by daughter
--- NOTE | 2020-05-02 18:30 | NUR ---
Dinner tray ordered
--- NOTE | 2020-05-02 18:50 | NUR ---
Report given to RICARDO MESSINA
--- NOTE | 2020-05-02 18:56 | NUR ---
Pt bedside report from Malcom alcala. This rn to assume care of pt. Pt resting comfortably on hospital bed. Awaiting meal tray.
--- NOTE | 2020-05-02 19:20 | NUR ---
Pt given meal tray at this time.
--- NOTE | 2020-05-02 20:32 | NUR ---
Pt resting comfortably. NADN.
[2020-05-02] MEDS: TRAZODONE 100MG TABLET PO SCH (21:00)
--- NOTE | 2020-05-02 21:20 | NUR ---
Pt resting comfortably. NADN.
--- NOTE | 2020-05-02 22:39 | NUR ---
Pt resting comfortably. NADN.
--- NOTE | 2020-05-03 00:04 | NUR ---
Pt resting comfortably. NADN.
--- NOTE | 2020-05-03 00:28 | NUR ---
Pt sleeping comfortably. NADN. RR even and unlabored.
--- NOTE | 2020-05-03 02:07 | NUR ---
Pt sleeping comfortably. NADN. RR even and unlabored.
--- NOTE | 2020-05-03 02:44 | NUR ---
Pt sleeping comfortably. NADN. RR even and unlabored.
--- NOTE | 2020-05-03 03:53 | NUR ---
Pt report to Mari alcala.
[2020-05-03] MEDS ORDERED: IBUPROFEN 600 MG TABLET ONE ×2 (06:03→13:47)
[2020-05-03] MEDS ORDERED: IBUPROFEN 600 MG TABLET PO ONE (06:30)
[2020-05-03] MEDS ORDERED: IBUPROFEN 200 MG TABLET PO ONE ×3 (06:30→20:30)
--- NOTE | 2020-05-03 07:00 | NUR ---
RECEIVED REPORT FROM ALHAJI MESSINA. TYLER AT DOOR.
--- NOTE | 2020-05-03 08:42 | NUR ---
PT ABLE TO AMBULATE TO PHONE STEADILY TO SPEAK WITH DAUGHTER ON PHONE. PT A&OX4. NO STATED NEEDS, WILL CONTINUE TO MONITOR. SITTER AT DOOR.
--- NOTE | 2020-05-03 09:10 | NUR ---
PT RECIEVED MEAL TRAY. PT VOMITED UP FOOD, STATED SHE NEEDS SOFTER FOODS SHE FORGETS TO CHEW THOROUGHLY. PT DID NOT WANT NEW BREAKFAST TRAY. STATED SHE WILL WAIT TIL LUNCH. IV REMOVED. SITTER AT DOOR.
[2020-05-03] MEDS: RISPERIDONE 0.5 MG TABLET PO SCH ×2 (10:28→21:00)
--- NOTE | 2020-05-03 10:28 | NUR ---
pt resting in bed at this time. medicated per order. pt has no wants or need at this time.
--- NOTE | 2020-05-03 11:20 | NUR ---
TP RN NOTE: ELVA RODRÍGUEZ ADMIT RN NICKOLAS CALLED TO CHECK IN ON STATUS OF REQUEST. RN TO CALL BACK ONCE TRANSFER REQUEST REVIEWED.
--- NOTE | 2020-05-03 11:46 | NUR ---
MEAL TRAY ORDERED.
--- NOTE | 2020-05-03 11:47 | NUR ---
PT RESTING COMFORTABLY UPDATED ON POC. SITTER IN HALLWAY AND CALLL LIGHT IN REACH.
--- NOTE | 2020-05-03 12:51 | NUR ---
MECHANICAL SOFT FOOD TRAY PROVIDED TO PT AFTER INCIDENT THIS AM WITH BREAKFAST AND SOME DIFFICULTY SWALLOWING
--- NOTE | 2020-05-03 12:55 | NUR ---
TP RN NOTE: TRANSFER REQUEST TO [facility] DECLINED D/T "MEDICAL COMPLEXITY."
--- NOTE | 2020-05-03 13:32 | NUR ---
TP RN NOTE: PACKET RE-FAXED TO [facility] SIDDHARTH OLMOS STATES SHE WAS UNABLE TO FIND PACKET WITH TRANSFER REQUEST. CONFIRMATION OF RECEIPT RECEIVED.
--- NOTE | 2020-05-03 13:43 | NUR ---
TP RN NOTE: [facility], PRODUCTION INTER[employer]IP RN STATES SHE HAS RECEIVED REQUEST FOR TRANSFER, STATES [facility] DOES NOT HAVE ADMIT CAPABILITY TODAY.
--- NOTE | 2020-05-03 14:13 | NUR ---
PT RESTING IN BED COMFORTABLY. PT MEDICATED PER ORDER FOR A HEADACHE. SITTER IN HALLWAY AND ROOM IS SECURE. PT CONSUMED ALL OF MECHANICALLY SOFT LUNCH
--- NOTE | 2020-05-03 16:57 | NUR ---
Pt denied by [facility] at this time.
--- NOTE | 2020-05-03 19:18 | NUR ---
PT CONSUMED ENTIRE MEAL AT DINNER. PT RESTING IN BED AT THIS TIME. NO WNATS OR NEEDS EXPRESSED. CALL LIGHT IN REACH AND SITTER IN HALLWAY
[2020-05-03] MEDS ORDERED: IBUPROFEN 200 MG TABLET ONE (20:07)
[2020-05-03] MEDS: TRAZODONE 100MG TABLET PO SCH (21:00)
[2020-05-03] MEDS ORDERED: TRAZODONE 100MG TABLET ONE (22:12)
--- NOTE | 2020-05-04 00:41 | NUR ---
PT RESTING IN BED WITH PT ROOM SI SECURE, SITTER AT PT DOOR. PT DENIED ANY WANTS OR NEEDS. RN WILL CONTINUE TO MONITOR PT
--- NOTE | 2020-05-04 01:26 | NUR ---
PT RESTING IN BED WITH PT ROOM SI SECURE, SITTER AT PT DOOR. PT DENIED ANY WANTS OR NEEDS. RN WILL CONTINUE TO MONITOR PT
--- NOTE | 2020-05-04 04:25 | NUR ---
PT RESTING IN BED WITH PT ROOM SI SECURE, SITTER AT PT DOOR. PT DENIED ANY WANTS OR NEEDS. RN WILL CONTINUE TO MONITOR PT
--- NOTE | 2020-05-04 06:38 | NUR ---
PT RESTING IN BED WITH PT ROOM SI SECURE, SITTER AT PT DOOR. PT DENIED ANY WANTS OR NEEDS. RN WILL CONTINUE TO MONITOR PT
--- NOTE | 2020-05-04 07:09 | NUR ---
REPORT RECEIVED FROM CHALINO MESSINA.
--- NOTE | 2020-05-04 07:49 | NUR ---
PT AMB TO BR AND BACK TO ROOM WITH STEADY GAIT.
--- NOTE | 2020-05-04 08:18 | NUR ---
DIET TRAY PROVIDED AT THIS TIME.
--- NOTE | 2020-05-04 08:59 | NUR ---
MEDICATION ORDERED FROM PHARMACY AT THIS TIME.
[2020-05-04] MEDS: RISPERIDONE 0.5 MG TABLET PO SCH ×2 (09:00→20:17)
--- NOTE | 2020-05-04 09:37 | NUR ---
pt medicated per emar. pt tolerated well.
--- NOTE | 2020-05-04 10:34 | NUR ---
pt resting in hospital bed. pt's aox4. resps even and unlabored. sitter monitoring from hallway for safety. room remains secure.
--- NOTE | 2020-05-04 11:37 | NUR ---
diet tray ordered at this time.
--- NOTE | 2020-05-04 13:03 | NUR ---
pt amb to br and back to room with steady gait.
--- NOTE | 2020-05-04 14:12 | NUR ---
pt requesting pain med at this time. pa notified.
[2020-05-04] MEDS ORDERED: IBUPROFEN 200 MG TABLET ONE (14:23)
[2020-05-04] MEDS ORDERED: IBUPROFEN 200 MG TABLET PO ONE (14:30)
--- NOTE | 2020-05-04 14:31 | NUR ---
pt medicated per emar. pt tolerated well. pt's aox4. resps even and unlabored. sitter monitoring from [facility] for safety. room remains secure.
--- NOTE | 2020-05-04 15:59 | NUR ---
pt resting in hospital bed. pt's aox4. resps even and unlabored. sitter monitoring from hallway for safety. room remains secure.
[2020-05-04 17:10] LABS: SALICYLATE LEVEL < 1.7 mg/dL (2.8-20.0)
--- NOTE | 2020-05-04 17:34 | NUR ---
pt resting in hospital bed. pt's aox4. resps even and unlabored. sitter monitoring from hallway for safety. room remains secure.
[2020-05-04 18:12] LABS: AMPHETAMINE SCREEN, URINE Negative (Negative); BARBITURATE SCREEN, URINE Negative (Negative); BENZODIAZEPINE SCREEN, URINE Negative (Negative); CANNABINOID SCREEN, URINE Negative (Negative); COCAINE SCREEN, URINE Negative (Negative); METHADONE SCREEN, URINE Negative (Negative); OPIATE SCREEN, URINE Negative (Negative)
--- NOTE | 2020-05-04 18:28 | NUR ---
diet tray provided at this time.
--- NOTE | 2020-05-04 19:12 | NUR ---
Vladimir dupree in [facility] - 05/04/20 at 1913 by AGAPITO report received from mayuri hicks
--- NOTE | 2020-05-04 19:14 | NUR ---
RECEIVED REPORT FROM SIDDHARTH KWAN. PT IN BED, DAYO. IN VIEW OF SITTER.
--- NOTE | 2020-05-04 19:14 | NUR ---
report given to mayuri alcala.
[2020-05-04] MEDS ORDERED: IBUPROFEN 200 MG TABLET PO PRN (20:00)
[2020-05-04] MEDS: TRAZODONE 100MG TABLET PO SCH (20:15)
--- NOTE | 2020-05-05 01:04 | NUR ---
PT HAS SLEPT IN VIEW OF THE SITTER FOR THE DURATION OF THE TIME WHILE IN THE CARE OF THIS RN.
--- NOTE | 2020-05-05 03:58 | NUR ---
REPORT TO SIDDHARTH ALLRED. CHALINO TO ASSUME FULL CARE OF PT AT THIS TIME. PT IN BED, NADN. PT IN VIEW OF THE SITTER.
--- NOTE | 2020-05-05 05:10 | NUR ---
PT RESTING IN BED, PT ROOM SI SECURE WITH SITTER AT PT DOOR. PT HAS NO WANTS OR NEEDS AT THIS TIME, RN WILL CONINUE TO MONITOR PT. PT MEDICATED PER EMAR
--- NOTE | 2020-05-05 07:01 | NUR ---
REPORT RECEIVED FROM SIDDHARTH ALLRED. ASSUMING CARE OF PATIENT. PT IS SLEEPING AT THIS TIME AND REMAINS UNDER CONSTANT SUPERVISION OF TYLER AND REMAINS SAFE.
[2020-05-05] MEDS ORDERED: IBUPROFEN 600 MG TABLET PO ONE (07:30)
[2020-05-05] MEDS ORDERED: IBUPROFEN 600 MG TABLET ONE (07:38)
[2020-05-05] MEDS: RISPERIDONE 0.5 MG TABLET PO SCH (08:34)
[2020-05-05] MEDS ORDERED: ACETAMINOPHEN 325 MG TABLET PO ONE (09:00)
[2020-05-05 11:18] VITALS: BP 158/84
--- NOTE | 2020-05-05 11:20 | NUR ---
VS UPDATED. PT HAS NO NEEDS AT THIS TIME. PT REMAINS UNDER CONSTANT SUPERVISION OF SITTER AND REMAINS SAFE.
--- NOTE | 2020-05-05 13:58 | NUR ---
SB[facility] TELEPHONE REPORT GIVEN TO SIDDHARTH SOLIS. PT READY TO GO TO HOSPITAL ROOM.
== END 2020-05-05 14:26 ==
LOC: ED 09:56
DX: T76.91XA Unspecified adult maltreatment, suspected, initial encounter (principal); Z20.828 Contact with and (suspected) exposure to other viral communicable diseases; R05 Cough; F03.90 Unspecified dementia, unspecified severity, without behavioral disturbance, psychotic disturbance, mood disturbance, and anxiety; F29 Unspecified psychosis not due to a substance or known physiological condition; R45.851 Suicidal ideations; J02.9 Acute pharyngitis, unspecified; R11.2 Nausea with vomiting, unspecified; R19.7 Diarrhea, unspecified; I10 Essential (primary) hypertension; Z85.3 Personal history of malignant neoplasm of breast; Z90.10 Acquired absence of unspecified breast and nipple; Z90.710 Acquired absence of both cervix and uterus
CPT/HCPCS: 36415; 74177; 80053; 80307; 81001; 83605; 85025; 87635; 96361; 96372; 96374; 96375; 96376; 99285; J1170; J2405; J2550; J7030; Q9967

== ENCOUNTER 2020-05-05 12:54 | Inpatient (IN) | payer MEDICARE, OTHER ==
[~2020-05-05] VITALS: Ht 162.6 cm; Wt 57.5 kg
[~2020-05-05 12:54] MED LIST changes: +ACETAMINOPHEN 325 MG TABLET ONE; +RISPERIDONE 2 MG TABLET ONE; +TRAZ50TA66 PO
[2020-05-05] MEDS ORDERED: POLYETHYLENE GLYCOL 17 GM PACKET PO PRN (13:00)
[2020-05-05] MEDS ORDERED: ONDANSETRON ODT 4 MG PO PRN (13:00)
[2020-05-05] MEDS ORDERED: DOCUSATE 100 MG CAPSULE PO PRN (13:00)
[2020-05-05] MEDS ORDERED: BISACODYL 10 MG SUPP PR PRN (13:00)
[2020-05-05 14:09] VITALS: BP 149/76
[2020-05-05] MEDS ORDERED: PLEASE ENTER HEIGHT AND WEIGHT MC SCH (14:30)
[2020-05-05] MEDS: AMOXICILLIN 500 MG CAPSULE PO SCH (20:12)
[2020-05-05] MEDS: ATORVASTATIN 20 MG TABLET PO SCH (20:12)
[2020-05-05 20:13] VITALS: BP 141/83
[2020-05-05] MEDS ORDERED: METOPROLOL TARTRATE 25 MG TAB PO SCH (21:00)
[2020-05-05] MEDS ORDERED: METOPROLOL TARTRATE 50 MG TAB PO SCH (21:00)
[2020-05-05] MEDS ORDERED: CARVEDILOL 3.125 MG TABLET PO SCH (21:00)
[2020-05-06] MEDS: AMOXICILLIN 500 MG CAPSULE PO SCH ×4 (05:49→20:34)
[2020-05-06 06:31] LABS: CHOL/HDL RATIO 3.1; FREE T4 (FREE THYROXINE) 1.04 ng/dL (0.76-1.46); LDL/HDL RATIO 1.7 (0.5-3.0)
[2020-05-06 08:01] VITALS: BP 150/77
[2020-05-06] MEDS ORDERED: METOPROLOL TARTRATE 25 MG TAB PO SCH (09:00)
[2020-05-06] MEDS: LOSARTAN 25MG TABLET PO SCH (09:14)
[2020-05-06] MEDS: METOPROLOL TARTRATE 25 MG TAB PO SCH ×2 (09:23→20:34)
[2020-05-06] MEDS: ACETAMINOPHEN 325 MG TABLET PO PRN ×2 (12:57→20:33)
[2020-05-06] MEDS: TOPIRAMATE 25 MG TABLET PO PRN (16:13)
[2020-05-06 19:57] VITALS: BP 147/81
[2020-05-06] MEDS: ATORVASTATIN 20 MG TABLET PO SCH (20:34)
[2020-05-07 07:15] VITALS: BP 129/76
[2020-05-07] MEDS: LOSARTAN 25MG TABLET PO SCH (08:23)
[2020-05-07] MEDS: AMOXICILLIN 500 MG CAPSULE PO SCH ×3 (08:24→20:36)
[2020-05-07] MEDS: METOPROLOL TARTRATE 25 MG TAB PO SCH ×2 (08:24→20:37)
[2020-05-07] MEDS: TOPIRAMATE 25 MG TABLET PO PRN ×2 (08:28→20:36)
[2020-05-07] MEDS: ACETAMINOPHEN 325 MG TABLET PO PRN (18:11)
[2020-05-07 19:07] VITALS: BP 131/75
[2020-05-07] MEDS: ATORVASTATIN 20 MG TABLET PO SCH (20:37)
[2020-05-08 07:32] VITALS: BP 143/82
[2020-05-08] MEDS ORDERED: FAMOTIDINE 20 MG TABLET ONE (09:17)
[2020-05-08] MEDS: LOSARTAN 25MG TABLET PO SCH (09:19)
[2020-05-08] MEDS: AMOXICILLIN 500 MG CAPSULE PO SCH ×3 (09:19→20:01)
[2020-05-08] MEDS: METOPROLOL TARTRATE 25 MG TAB PO SCH ×2 (09:19→20:01)
[2020-05-08] MEDS: TOPIRAMATE 25 MG TABLET PO PRN ×2 (12:57→20:03)
[2020-05-08] MEDS: ACETAMINOPHEN 325 MG TABLET PO PRN ×2 (12:58→18:36)
[2020-05-08] MEDS: LACTOBACILLUS CHEW TABLET PO SCH ×2 (15:03→17:00)
[2020-05-08] MEDS: OMEPRAZOLE 20 MG CAPSULE.DR PO SCH (15:03)
[2020-05-08 18:32] VITALS: BP 102/62
[2020-05-08] MEDS: FAMOTIDINE 20 MG TABLET PO SCH (20:01)
[2020-05-08] MEDS: ATORVASTATIN 20 MG TABLET PO SCH (20:01)
[2020-05-08] MEDS ORDERED: FAMOTIDINE 20 MG TABLET PO SCH (21:00)
[2020-05-09] MEDS: OMEPRAZOLE 20 MG CAPSULE.DR PO SCH (05:44)
[2020-05-09] MEDS: LACTOBACILLUS CHEW TABLET PO SCH ×3 (09:18→15:59)
[2020-05-09] MEDS: METOPROLOL TARTRATE 25 MG TAB PO SCH ×2 (09:18→20:58)
[2020-05-09] MEDS: AMOXICILLIN 500 MG CAPSULE PO SCH ×3 (09:18→20:58)
[2020-05-09] MEDS: LOSARTAN 25MG TABLET PO SCH (09:19)
[2020-05-09 11:53] VITALS: BP 127/64
[2020-05-09] MEDS: ACETAMINOPHEN 325 MG TABLET PO PRN ×2 (15:05→21:49)
[2020-05-09] MEDS: TOPIRAMATE 25 MG TABLET PO PRN (15:05)
[2020-05-09 19:05] VITALS: BP 122/72
[2020-05-09] MEDS: FAMOTIDINE 20 MG TABLET PO SCH (20:58)
[2020-05-09] MEDS: ATORVASTATIN 20 MG TABLET PO SCH (21:00)
[2020-05-10] MEDS: OMEPRAZOLE 20 MG CAPSULE.DR PO SCH (05:47)
[2020-05-10] MEDS: METOPROLOL TARTRATE 25 MG TAB PO SCH ×2 (08:34→20:41)
[2020-05-10] MEDS: AMOXICILLIN 500 MG CAPSULE PO SCH ×3 (08:34→20:40)
[2020-05-10] MEDS: LOSARTAN 25MG TABLET PO SCH (08:34)
[2020-05-10] MEDS: LACTOBACILLUS CHEW TABLET PO SCH ×3 (08:35→17:22)
[2020-05-10] MEDS: ACETAMINOPHEN 325 MG TABLET PO PRN ×3 (08:40→19:33)
[2020-05-10 09:19] VITALS: BP 117/68
[2020-05-10 19:56] VITALS: BP 122/72
[2020-05-10] MEDS: ATORVASTATIN 20 MG TABLET PO SCH (20:41)
[2020-05-10] MEDS: TOPIRAMATE 25 MG TABLET PO PRN (20:47)
[2020-05-10] MEDS: FAMOTIDINE 20 MG TABLET PO SCH (20:53)
[2020-05-11] MEDS: OMEPRAZOLE 20 MG CAPSULE.DR PO SCH (05:45)
[2020-05-11 07:21] VITALS: BP 141/84
[2020-05-11] MEDS: LACTOBACILLUS CHEW TABLET PO SCH ×3 (09:01→15:44)
[2020-05-11] MEDS: LOSARTAN 25MG TABLET PO SCH (09:01)
[2020-05-11] MEDS: AMOXICILLIN 500 MG CAPSULE PO SCH ×3 (09:02→19:55)
[2020-05-11] MEDS: METOPROLOL TARTRATE 25 MG TAB PO SCH ×2 (09:02→19:55)
[2020-05-11] MEDS: TOPIRAMATE 25 MG TABLET PO PRN (15:44)
[2020-05-11 19:47] VITALS: BP 158/61
[2020-05-11] MEDS: ACETAMINOPHEN 325 MG TABLET PO PRN (19:55)
[2020-05-11] MEDS: ATORVASTATIN 20 MG TABLET PO SCH (19:55)
[2020-05-11] MEDS: FAMOTIDINE 20 MG TABLET PO SCH (20:30)
[2020-05-11] MEDS ORDERED: GABAPENTIN 300 MG CAPSULE PO ONE (21:30)
[2020-05-12] MEDS: OMEPRAZOLE 20 MG CAPSULE.DR PO SCH (05:35)
[2020-05-12 07:25] VITALS: BP 147/79
[2020-05-12] MEDS: METOPROLOL TARTRATE 25 MG TAB PO SCH ×2 (08:13→20:17)
[2020-05-12] MEDS: LACTOBACILLUS CHEW TABLET PO SCH ×3 (08:13→16:23)
[2020-05-12] MEDS: LOSARTAN 25MG TABLET PO SCH (08:13)
[2020-05-12] MEDS: AMOXICILLIN 500 MG CAPSULE PO SCH ×2 (08:13→16:22)
[2020-05-12] MEDS: ACETAMINOPHEN 325 MG TABLET PO PRN ×3 (13:14→22:30)
[2020-05-12 19:15] VITALS: BP 125/57
[2020-05-12] MEDS: TOPIRAMATE 25 MG TABLET PO PRN (20:17)
[2020-05-12] MEDS: ATORVASTATIN 20 MG TABLET PO SCH (20:17)
[2020-05-12] MEDS: FAMOTIDINE 20 MG TABLET PO SCH (20:57)
[2020-05-13] MEDS: OMEPRAZOLE 20 MG CAPSULE.DR PO SCH (05:53)
[2020-05-13] MEDS: ACETAMINOPHEN 325 MG TABLET PO PRN ×2 (06:01→20:24)
[2020-05-13 07:20] VITALS: BP 142/82
[2020-05-13] MEDS: LACTOBACILLUS CHEW TABLET PO SCH ×3 (07:52→17:20)
[2020-05-13] MEDS: METOPROLOL TARTRATE 25 MG TAB PO SCH ×2 (07:53→20:24)
[2020-05-13] MEDS: LOSARTAN 25MG TABLET PO SCH (09:00)
[2020-05-13] MEDS: TOPIRAMATE 25 MG TABLET PO PRN (09:32)
[2020-05-13 20:12] VITALS: BP 111/65
[2020-05-13] MEDS: FAMOTIDINE 20 MG TABLET PO SCH (20:24)
[2020-05-13] MEDS: ATORVASTATIN 20 MG TABLET PO SCH (20:26)
[2020-05-14] MEDS: OMEPRAZOLE 20 MG CAPSULE.DR PO SCH (05:28)
[2020-05-14 07:25] VITALS: BP 146/78
[2020-05-14] MEDS: TOPIRAMATE 25 MG TABLET PO PRN (08:12)
[2020-05-14] MEDS: LACTOBACILLUS CHEW TABLET PO SCH ×3 (08:12→17:11)
[2020-05-14] MEDS: METOPROLOL TARTRATE 25 MG TAB PO SCH ×2 (08:14→20:53)
[2020-05-14] MEDS: LOSARTAN 25MG TABLET PO SCH (08:17)
[2020-05-14] MEDS: ACETAMINOPHEN 325 MG TABLET PO PRN ×3 (08:20→19:30)
[2020-05-14 18:57] VITALS: BP 135/79
[2020-05-14] MEDS: FAMOTIDINE 20 MG TABLET PO SCH (20:53)
[2020-05-14] MEDS: ATORVASTATIN 20 MG TABLET PO SCH (20:53)
[2020-05-15] MEDS: TOPIRAMATE 25 MG TABLET PO PRN (00:02)
[2020-05-15] MEDS: ACETAMINOPHEN 325 MG TABLET PO PRN ×2 (01:40→14:10)
[2020-05-15] MEDS: OMEPRAZOLE 20 MG CAPSULE.DR PO SCH (05:38)
[2020-05-15 07:19] VITALS: BP 149/85
[2020-05-15] MEDS: LACTOBACILLUS CHEW TABLET PO SCH ×3 (08:00→16:35)
[2020-05-15] MEDS: METOPROLOL TARTRATE 25 MG TAB PO SCH ×2 (08:01→20:47)
[2020-05-15] MEDS: LOSARTAN 25MG TABLET PO SCH (08:04)
[2020-05-15 19:00] VITALS: BP 109/58
[2020-05-15] MEDS: FAMOTIDINE 20 MG TABLET PO SCH (20:47)
[2020-05-15] MEDS: ATORVASTATIN 20 MG TABLET PO SCH (20:47)
[2020-05-16] MEDS: OMEPRAZOLE 20 MG CAPSULE.DR PO SCH (06:13)
[2020-05-16 07:20] VITALS: BP 145/85
[2020-05-16] MEDS: METOPROLOL TARTRATE 25 MG TAB PO SCH ×2 (08:16→20:07)
[2020-05-16] MEDS: LACTOBACILLUS CHEW TABLET PO SCH ×3 (08:17→16:10)
[2020-05-16] MEDS: LOSARTAN 25MG TABLET PO SCH (08:19)
[2020-05-16] MEDS: ACETAMINOPHEN 325 MG TABLET PO PRN ×2 (13:22→21:43)
[2020-05-16] MEDS: TOPIRAMATE 25 MG TABLET PO PRN ×2 (14:32→20:07)
[2020-05-16 19:31] VITALS: BP 136/74
[2020-05-16] MEDS: FAMOTIDINE 20 MG TABLET PO SCH (20:07)
[2020-05-16] MEDS: ATORVASTATIN 20 MG TABLET PO SCH (20:07)
[2020-05-17] MEDS: TOPIRAMATE 25 MG TABLET PO PRN
[2020-05-17] MEDS: OMEPRAZOLE 20 MG CAPSULE.DR PO SCH (06:21)
[2020-05-17 07:10] VITALS: BP 136/78
[2020-05-17] MEDS: LACTOBACILLUS CHEW TABLET PO SCH ×3 (08:17→17:26)
[2020-05-17] MEDS: LOSARTAN 25MG TABLET PO SCH (08:18)
[2020-05-17] MEDS: METOPROLOL TARTRATE 25 MG TAB PO SCH ×2 (08:19→20:42)
[2020-05-17 19:19] VITALS: BP 92/55
[2020-05-17 20:00] VITALS: BP 135/81
[2020-05-17] MEDS: FAMOTIDINE 20 MG TABLET PO SCH (20:42)
[2020-05-17] MEDS: ATORVASTATIN 20 MG TABLET PO SCH (20:42)
[2020-05-18] MEDS: OMEPRAZOLE 20 MG CAPSULE.DR PO SCH (05:25)
[2020-05-18 07:00] VITALS: BP 142/81
[2020-05-18] MEDS: METOPROLOL TARTRATE 25 MG TAB PO SCH ×2 (08:42→20:50)
[2020-05-18] MEDS: LACTOBACILLUS CHEW TABLET PO SCH ×3 (08:42→17:00)
[2020-05-18] MEDS: LOSARTAN 25MG TABLET PO SCH (08:44)
[2020-05-18] MEDS: ACETAMINOPHEN 325 MG TABLET PO PRN ×2 (12:28→20:50)
[2020-05-18] MEDS ORDERED: ATOR20TA37 PO (13:10)
[2020-05-18] MEDS ORDERED: FAMO20TA7 PO (13:10)
[2020-05-18] MEDS ORDERED: OMEP-110 PO (13:10)
[2020-05-18] MEDS ORDERED: LOSA25TA25 PO (13:10)
[2020-05-18] MEDS ORDERED: TOPI25TA32 PO (13:10)
[2020-05-18] MEDS ORDERED: METO25TA35 PO (13:10)
[2020-05-18] MEDS ORDERED: ACID1TAB7 PO (13:10)
[2020-05-18 19:31] VITALS: BP 131/76
[2020-05-18] MEDS: ATORVASTATIN 20 MG TABLET PO SCH (20:49)
[2020-05-18] MEDS: FAMOTIDINE 20 MG TABLET PO SCH (20:50)
[2020-05-19] MEDS: ACETAMINOPHEN 325 MG TABLET PO PRN (03:49)
[2020-05-19] MEDS: OMEPRAZOLE 20 MG CAPSULE.DR PO SCH (06:17)
[2020-05-19 07:20] VITALS: BP 136/65
[2020-05-19] MEDS: LOSARTAN 25MG TABLET PO SCH (07:48)
[2020-05-19] MEDS: LACTOBACILLUS CHEW TABLET PO SCH (07:48)
[2020-05-19] MEDS: METOPROLOL TARTRATE 25 MG TAB PO SCH (07:48)
== END 2020-05-19 10:08 | disposition home or self-care (01) | DRG 885 ==
LOC: 3E 14:10
PROVIDERS: ADMIT Psychiatry & Neurology Psychosomatic Medicine; ATTEND Psychiatry & Neurology Psychosomatic Medicine
DX: F33.2 Major depressive disorder, recurrent severe without psychotic features (principal); K51.90 Ulcerative colitis, unspecified, without complications; F60.3 Borderline personality disorder; G43.909 Migraine, unspecified, not intractable, without status migrainosus; F41.1 Generalized anxiety disorder; G31.84 Mild cognitive impairment of uncertain or unknown etiology; E78.5 Hyperlipidemia, unspecified; C50.919 Malignant neoplasm of unspecified site of unspecified female breast; I00 Rheumatic fever without heart involvement; I10 Essential (primary) hypertension; N64.4 Mastodynia; I25.2 Old myocardial infarction; Z20.828 Contact with and (suspected) exposure to other viral communicable diseases; K21.9 Gastro-esophageal reflux disease without esophagitis; Z79.899 Other long term (current) drug therapy; Z82.49 Family history of ischemic heart disease and other diseases of the circulatory system; Z82.5 Family history of asthma and other chronic lower respiratory diseases; Z85.3 Personal history of malignant neoplasm of breast; Z90.11 Acquired absence of right breast and nipple; Z90.710 Acquired absence of both cervix and uterus
CPT/HCPCS: 36415; 71045; 80061; 82140; 82607; 84439; 84443; 87426; 93005; 92522-GN